=== PATIENT | female | born 1965 | race Caucasian/White ===

== ENCOUNTER → 2016-11-11 | Outpatient (CLI) | payer OTHER ==
[2016-11-11 12:58] LABS: ASPARTATE AMINO TRANSFERASE 17 IU/L (8-39); BILIRUBIN,TOTAL 0.8 mg/dL (0.3-1.2); BLOOD UREA NITROGEN 13 mg/dL (7-22); BUN/CREATININE RATIO 18.57 (6-20); CALCIUM 9.6 mg/dL (8.7-10.7); CHLORIDE 100 meq/L (98-112); CREATININE 0.7 mg/dL (0.50-1.20); EST GLOMERULAR FILTRATION > 60 (>60 ml/min/1.73m(2)); GLUCOSE 120 mg/dL (78-110); HDL CHOLESTEROL 40 mg/dL (40-150); POTASSIUM 4.4 meq/L (3.8-5.2); SODIUM 139 meq/L (135-145); TOTAL PROTEIN 7.1 g/dL (6.1-8.0); TRIGLYCERIDES 158 mg/dL (44-200)
== END ==
LOC: LAB 11:55
PROVIDERS: ATTEND Internal Medicine
DX: E11.9 Type 2 diabetes mellitus without complications (principal); E78.5 Hyperlipidemia, unspecified
CPT/HCPCS: 36415; 80053; 80061; 82550; 83036

== ENCOUNTER → 2016-11-12 | Outpatient (CLI) | payer OTHER | LOC: RT 09:21 | PROVIDERS: ATTEND Internal Medicine | DX: J45.30 Mild persistent asthma, uncomplicated (principal) | CPT/HCPCS: 94060 ==

== ENCOUNTER 2017-01-02 09:12 | Emergency (ER) | payer OTHER ==
[2017-01-02] MEDS ORDERED: Lidocaine 1% 10 MG/ML - 20 ML VIAL SUBCUT ONE (09:59)
[2017-01-02] MEDS ORDERED: BACITRACIN 0.9 GM PACKET OINT TOPICAL ONE (10:39)
[2017-01-02] MEDS ORDERED: DIPH,PERTUSS,TET(ADACEL) VAC/PF 0.5 ML (Tdap) IM ONE (10:46)
[2017-01-02 11:17] VITALS: RESP 17; TEMP 96.7
--- NOTE | 2017-01-03 01:54 | PDOC ---
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 She was walking a leashed dog and forcefully pulled on the dog's leash. The dog then bit her on the right and left hand, primarily the right hand. Patient states the dog's vaccinations are current. Patient states her tetanus vaccination is not current. Patient sustained a puncture wound to the palmar and radial aspect of the tip of the right thumb and the dorsum of the right hand over the fourth metacarpal and to the second right finger over the proximal interphalangeal joint. She also sustained a superficial puncture wound to the left hand over the fifth meta-carpal. Patient denies any sensory or motor deficits. Good hemostasis Have you received a tetanus shot in the past 10 years?: No Body Location Affected: REPORTS: Upper Extremity (L), Upper Extremity (R) Timing: REPORTS: Abrupt Duration: 1/2 hour Location at Time of Onset: REPORTS: Work ([employer]) Severity: Moderate Quality: REPORTS: "Pain", Tenderness Animal: REPORTS: Dog (Dog at the animal longterm) Appearance of Animal: REPORTS: Appeared Healthy Animal Immunization Status: POSITIVE: Up to Date Observation/Capture: POSITIVE: Can be Observed x 10 Days, Law Enforcement Notified Context of Attack: REPORTS: Provoked Attack Severity of Attack: POSITIVE: Bitten Location of Injury: POSITIVE: Right Upper Extremity (Right hand; see above and see diagram), Left Upper Extremity (Left hand; see above and see diagram) Associated Symptoms: REPORTS: Denies Symptoms Any Prior Injuries Related to Current Complaint?: No - Patient Home Medications Home Medications: Home Medications Clonazepam 1 tab PO BID 12/23/11 Fluoxetine HCl [Prozac] 1 tab PO DAILY 12/23/11 Blood Sugar Diagnostic [Freestyle Lite Strips] 1 each IN QID #100 strip Amlodipine Besylate 1 tab ORAL QD #90 tab 05/01/16 Lisinopril 1 tab ORAL QD #90 tab 05/01/16 Atorvastatin Calcium 1 tab PO QHS #90 tab 05/22/16 Albuterol Sulfate [Proair Hfa] 1 - 2 puff INH Q4-6H PRN #1 puff 07/12/16 Cholecalciferol (Vitamin D3) [Vitamin D3] 1 cap PO QD #60 cap 11/12/16 Dapagliflozin/Metformin HCl [Xigduo Xr 10 Mg-1,000 Mg Tab] 1 each PO QD #42 tab 11/12/16 [place]-3 Fatty Acids/Fish Oil [Fish Oil 1,000 Mg Capsule] 1 each PO QD #90 cap Amox Tr/Potassium Clavulanate [Augmentin 875-125 Tablet] 1 each PO Q12H #20 tablet 01/02/17 Empagliflozin/Metformin HCl [Synjardy 5-500 Mg Tablet] 1 each PO BID #90 tab HYDROcodone/APAP 10/325 Tab [[place] 10/325 Tab] 1 tab PO Q6H PRN #12 tab - Patient Allergies Allergies/Adverse Reactions: Allergies Allergy/AdvReac Type Severity Reaction Status Date / Time Beta-Blockers AdvReac Severe CHEST PAIN Verified 01/02/17 09:26 (Beta-Adrenergic Bloc OR TIGHTNESS diltiazem AdvReac Severe CHEST PAIN Verified 01/02/17 09:26 OR TIGHTNESS verapamil AdvReac Severe CHEST PAIN Verified 01/02/17 09:26 OR TIGHTNESS Past Medical History - heen HEENT History: Denies History Cardiovascular History: Hypertension, Hyperlipidemia, Other (please comment) Additional Cardiovasular History: DISAUTONOMIA Respiratory History: Denies History Gastrointestinal History: Denies History Genitourinary History: Denies History Endocrine History: Type 2 Diabetes (oral) Additional Endocrine History: DYSAUTONAUMIA Musculoskeletal History: Denies History Prosthesis or Implant: No Neurological History: Denies History Blood Disorders: Denies History Psychiatric History: Depression, Anxiety Disorders History of Sexually Transmitted Diseases: No Female Reproductive History: Hysterectomy LMP: 1980 Obstetrical History: Delivery Additional Obstetrical History: x1 Cancer History: Denies History In Past Year Been Physically Harmed or Verbally Threatened: No (PER PATIENT) History of MDRO: No History of Other Communicable Diseases: No Tobacco Use: Never Smoker Alcohol Use: Occasionally Substance Use Type: None Previous Surgical History: Yes Type / Date of Surgery: x1, FULL HYSTERECTOMY Anesthesia Reactions: No Malignant Hyperthermia: No Family History of Malignant Hyperthermia: No Significant Family History: No pertinent family hx Past Medical History Reviewed: Reviewed - No Changes ROS - Limitations ROS Limitations: No Limitations Constitution: REPORTS: Denies Symptoms Cardiovascular: REPORTS: Denies Cardiac Symptoms Respiratory: REPORTS: Denies Resp Symptoms Neurological: REPORTS: Denies Neuro Symptoms Gastrointestinal: REPORTS: Denies GI Symptoms Endocrine: REPORTS: Denies Symptoms Musculoskeletal: REPORTS: Recent Injury (Dog bite right and left hands as above ; see diagram) Genitourinary: REPORTS: Denies Symptoms Eyes: REPORTS: Denies Symptoms ENT: REPORTS: Denies Symptoms Skin: REPORTS: Other (Dog bite with puncture wounds right and left hand; see diagram) Lympathic: REPORTS: Denies Lympathic Symptoms Immunologic: POSITIVE: Denies Symptoms Psychiatric: POSITIVE: Denies Psych Symptoms Animal Bite Physical Exam - General Appearance General Appearance: REPORTS: Alert, Cooperative, No Acute Distress - Neck Neck: POSITIVE: Normal Inspection, No Apparent Injury - Respiratory Respiratory: POSITIVE: No Respiratory Distress, Breath Sounds Normal, Chest Non- Tender - Cardiovascular Cardiovascular: POSITIVE: Regular Rate and Rhythm, Heart Sounds Normal, Equal Pulses, Strong Pulses Peripheral Pulses: Radial (R): 2+, Radial (L): 2+ - Chest Chest: POSITIVE: Non Tender - Skin Skin: POSITIVE: Puncture Wound (Right and left hands; see above and see diagram) - Extremities Extremity Assessment: Non-Tender: (RLE), (LLE), Normal ROM: (ALL), No Edema: ( ALL), Normal Inspection: (LLE), (RLE), No Swelling: (ALL), Pelvis Stable: (ALL) , Normal Tendon Exam: (ALL), Tender: (RUE), (LUE) Additional Extremities Details: Examination of right hand shows a superficial puncture wound with a small flap- like tear to the palmar and radial aspect of the tip of the right thumb. She also has a superficial puncture wound/laceration over the dorsum of the right hand over the fourth metacarpal and a superficial puncture wound to the right finger over the proximal interphalangeal joint. She has a superficial puncture wound to the left hand over the fifth metacarpal; see diagram. Range of motion of all joints are intact and there is no sensory or motor deficits or symptoms. See diagram. 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 As Tested, Motor Normal , Sensation Normal, No Vascular Compromise, ROM Normal - Psych Psych: POSITIVE: Mood Appropriate, Affect Appropriate - Wound Wound General Appearance: POSITIVE: Other (See above and see diagram) Wound Cleaning/Irrigation: POSITIVE: Saline Irrigant (After local anesthesia with 1% lidocaine puncture wounds were sterilely and copiously irrigated with normal saline) Wound Dressing Status: POSITIVE: New Dressing Placed (Bacitracin dressing was placed) Images - Hands Hand: 1 - Puncture wound and superficial flap-type skin tear 2 - Puncture wound 3 - Superficial puncture wound 4 - Superficial puncture wound Procedures - Additional Procedures Additional Procedures: Lavage - Initial (After local anesthesia with 1% lidocaine the puncture wounds were copiously irrigated with normal saline) Animal Bite Progress - Patient's Progress Pain Medication Addressed: POSITIVE: Yes (Patient prescribed hydrocodone/APAP, one every 4 hours as necessary for pain) School/Work Release Addressed: POSITIVE: Yes Re-examine Time: 10:45 Re-Examine Comment: Tdap vaccination given. Bacitracin dressings placed. Status: POSITIVE: Improved, Re-Examined Rabies Vaccine Series Implemented: No - Consult Counseled: POSITIVE: Patient, RE: DX, RE: Need for F/U Patient Care Time - Estimated PCT Patient Care Time (In Minutes): 35 Vital Signs - VS Reviewed Vital Signs Reviewed: Yes Discharge Clinical Impression: Dog bite Discharge Disposition: Discharged to Home Condition: Stable Prescriptions / Orders: Amox Tr/Potassium Clavulanate [Augmentin 875-125 Tablet] 1 each PO Q12H #20 tablet HYDROcodone/APAP 10/325 Tab [[place] 10/325 Tab] 1 tab PO Q6H PRN #12 tab PRN Reason: Pain Patient Instructions Given at Discharge: Animal Bite (ED) Additional Instructions: Augmentin, one every 12 hours for 10 days. Hydrocodone/APAP, one every 6 hours as necessary for pain. Wash wound well with soap and water daily and apply bacitracin dressing daily. Follow-up with your primary care provider. Return here anytime at first sign of infection or if condition worsens in any way. Follow Up With: GILBERTO MANRIQUE [Primary Care Provider] - (Instructions as above. Return if condition worsens in any way. Follow-up with your primary care provider.)
== END 2017-01-02 11:07 | disposition home or self-care (01) ==
LOC: ER 09:12
DX: S61.452A Open bite of left hand, initial encounter (principal); W54.0XXA Bitten by dog, initial encounter; Y99.0 Civilian activity done for income or pay
CPT/HCPCS: 90471; 99282; J2001

== ENCOUNTER → 2017-02-14 | Outpatient (CLI) | payer OTHER | LOC: LAB 10:07 | PROVIDERS: ATTEND Internal Medicine | DX: E11.9 Type 2 diabetes mellitus without complications (principal) | CPT/HCPCS: 36415; 83036 ==